=== PATIENT | male | born 1955 | race Two or more races ===

== ENCOUNTER 2023-01-22 21:39 | Emergency (ER) | payer MEDICARE, OTHER ==
[~2023-01-22] VITALS: Ht 185.4 cm; Wt 90.9 kg
[2023-01-22 21:39] VITALS: TEMP 94.7; O2SAT 0
[2023-01-22] MEDS ORDERED: CALCIUM CHLOR(10%) 100MG/ML 10ML SYRINGE IV ONE (21:40)
[2023-01-22] MEDS ORDERED: EPINEPHrine HCL 1 MG/10 ML SYRG IV ONE (21:40)
[2023-01-22] MEDS ORDERED: SODIUM BICARBONATE 8.4% INJ 50ML SYRINGE IV ONE (21:40)
[2023-01-22 21:53] VITALS: BP 0/0; PULSE 0; RESP 0; O2SAT 83
[2023-01-22] MEDS ORDERED: PANTOPRAZOLE 40 MG/10 ML VIAL INJ IV ONE (21:54)
[2023-01-22] MEDS ORDERED: GLUCAGON EMERG KIT 1mg/1ml ONE (21:56)
[2023-01-22] MEDS ORDERED: EPINEPHrine HCL 1 MG/10 ML SYRG ONE ×2 (21:59→22:00)
[2023-01-22] MEDS ORDERED: TRANEXAMIC ACID 10 ML ONE (22:47)
[2023-01-23] MEDS ORDERED: PANTOPRAZOLE 40 MG/10 ML VIAL INJ IV ONE
[2023-01-23] MEDS ORDERED: GLUCAGON EMERG KIT 1mg/1ml IV ONE
== END 2023-01-22 22:43 ==
LOC: EDBD 21:39 → ER 21:39
DX: I46.9 Cardiac arrest, cause unspecified (principal)
CPT/HCPCS: 36430; 86920; 92950; 96374; 96375; 99285; C9113; J0171; J1610; J7030; P9016